=== PATIENT | male | born 1960 | race Caucasian/White ===

== ENCOUNTER 2019-04-13 10:17 | Emergency (ER) | payer OTHER ==
[2019-04-13 10:27] VITALS: TEMP 97.9; BMI 23.7
--- NOTE | 2019-04-13 10:59 | PDOC ---
Attending Attestation - Resident Resident Name: Tyler Foss - HPI HPI: 04/13/19 11:44 pt presents to the ED complaining of abdominal distention and decreased urine output. History of BPH. Has urology follow up on Monday. - Physicial Exam PE: 04/13/19 11:50 Agree with resident exam. Patient is alert and oriented and in no acute distress. Abdomen is soft, non tender, non distended without guarding or rebound. - Medical Decision Making 04/13/19 13:11 pt presents to the Ed complaining of urinary retention. Crawford placed in the ED with drainage of 1300 cc urine. Will discharge home with instructions to return to the ED for new or worsening symptoms and to follow up with his urologist on Monday.
[2019-04-13 12:09] LABS: HEMATOCRIT 40.9 % (35.4-49); HEMOGLOBIN 13.8 GM/dL (11.7-16.9); MCH 29.7 pg (25.7-33.7); MCHC 33.7 g/dl (32.0-35.9); MEAN CELL VOLUME 88.3 fl (80-96); MEAN PLT VOLUME 9.7 fl (7.5-11.1); PLATELET COUNT 171 K/MM3 (134-434); RBC 4.63 M/mm3 (4.00-5.60); RDW 14.2 % (11.9-15.9); WHITE BLOOD COUNT 8.3 K/mm3 (4.0-10.0)
--- NOTE | 2019-04-13 12:25 | PDOC ---
History of Present Illness - General Chief Complaint: Urinary Problem Stated Complaint: SENT BY URGENT CARE Time Seen by Provider: 04/13/19 10:56 History Source: Patient Exam Limitations: No Limitations - History of Present Illness Initial Comments: 58 yo M with a hx of neophrolithiasis, BPH, and elevated PSA (6.4; negative bxx on 09/2018; followed by Dr. Choudhury) presents to the emergency department with urinary incontinence for 6 days. Per the patient, his urinary streams have been weak and described as "dribbling". He states he has had suprapubic pain since then. Denies dysuria and hematuria. Denies the following: fevers, chills, SOB, chest pain, back pain, hematuria, constipation, diarrhea, and hematochezia. Allergies: NKDA Past History - Past Medical History Allergies/Adverse Reactions: Allergies Allergy/AdvReac Type Severity Reaction Status Date / Time codeine AdvReac "SHIVERS Verified 04/13/19 10:27 AND CONSTIPATION" Home Medications: Ambulatory Orders NK [No Known Home Medication] 04/13/19 COPD: No GI Disorders: Yes (enlarged prostate) Kidney Stones: Yes - Psycho Social/Smoking Cessation Hx Smoking History: Current every day smoker Have you smoked in the past 12 months: Yes Number of Cigarettes Smoked Daily: 10 Information on smoking cessation initiated: No 'Breaking Loose' booklet given: 03/26/15 Hx Alcohol Use: No Drug/Substance Use Hx: No Substance Use Type: Marijuana Hx Substance Use Treatment: No Review of Systems - Review of Systems Able to Perform ROS?: Yes Is the patient limited Norwegian proficient: No Constitutional: No: Chills, Diaphoresis, Fever, Weakness HEENTM: No: Eye Pain, Ear Pain, Nose Pain, Throat Pain, Mouth Pain Respiratory: No: Cough, Shortness of Breath, Hemoptysis Cardiac (ROS): No: Chest Pain, Lightheadedness, Palpitations, Chest Tightness ABD/GI: Yes: Abdominal cramping (suprapubic). No: Constipated, Diarrhea, Nausea , Rectal Bleeding, Vomiting, Tarry Stools : Yes: Incontinence. No: Burning, Dysuria, Flank Pain, Hematuria Musculoskeletal: No: Back Pain, Joint Pain, Neck Pain Integumentary: No: Bruising, Erythema, Rash Neurological: No: Headache, Numbness, Seizure, Tingling Psychiatric: No: Change in Appetite Endocrine: No: Unexplained Weight Loss Hematologic/Lymphatic: No: Anemia *Physical Exam - Vital Signs Last Vital Signs Temp Pulse Resp BP Pulse Ox 97.9 F 102 H 16 120/74 98 04/13/19 10:24 04/13/19 10:24 04/13/19 10:24 04/13/19 10:24 04/13/19 10:24 - Physical Exam General Appearance: Yes: Nourished, Appropriately Dressed. No: Apparent Distress, Intoxicated HEENT: positive: EOMI, CINDY, Normal Voice, Symmetrical, Pharynx Normal, Hearing Grossly Normal. negative: Pale Conjunctivae, Scleral Icterus (R), Scleral Icterus (L), Muffled/Hoarse voice, Pharyngeal Erythema, Tonsillar Exudate, Tonsillar Erythema, Nasal Congestion, Rhinorrhea, Sinus Tenderness, Excessive drooling Neck: positive: Trachea midline, Supple. negative: Tender, Lymphadenopathy (R) , Lymphadenopathy (L), Tender lateral, Tender midline Respiratory/Chest: positive: Lungs Clear, Normal Breath Sounds. negative: Chest Tender, Respiratory Distress, Accessory Muscle Use, Decreased Breath Sounds, Paradoxal Breathing, Crackles, Rales, Rhonchi Cardiovascular: positive: Regular Rhythm, Regular Rate, S1, S2. negative: Systolic Murmur Gastrointestinal/Abdominal: positive: Normal Bowel Sounds, Flat, Soft. negative : Tender, Rebound, Tenderness Male Genitalia: positive: normal genitalia. negative: hematuria Lymphatic: negative: Adenopathy Musculoskeletal: positive: Normal Inspection. negative: CVA Tenderness, Vertebral Tenderness Extremity: positive: Normal Capillary Refill, Normal Inspection, Normal Range of Motion. negative: Tender, Swelling, Calf Tenderness Integumentary: positive: Normal Color, Dry, Warm. negative: Swelling, Ecchymosis Neurologic: positive: Fully Oriented, Alert, Normal Mood/Affect ED Treatment Course - LABORATORY CBC & Chemistry Diagram: 04/13/19 11:29 04/13/19 11:29 - ADDITIONAL ORDERS Additional order review: 04/13/19 11:29 RBC 4.63 MCV 88.3 MCHC 33.7 RDW 14.2 MPV 9.7 Medical Decision Making - Medical Decision Making 04/13/19 13:17 58 yo M with a hx of neophrolithiasis, BPH, and elevated PSA (6.4; negative bxx on 09/2018; followed by Dr. Choudhury) presents to the emergency department with urinary incontinence for 6 days. Initial vitals: Initial Vital Signs Temp Pulse Resp BP Pulse Ox 97.9 F 102 H 16 120/74 98 04/13/19 10:24 04/13/19 10:24 04/13/19 10:24 04/13/19 10:24 04/13/19 10:24 Work up: ddx: patient was given a mendoza catheter and was found to have an output of 1200 cc Patient to have cbc, cmp, and ua to elucidate for acute process Laboratory Tests 04/13/19 04/13/19 04/13/19 11:11 11:29 11:29 WBC 8.3 RBC 4.63 Hgb 13.8 Hct 40.9 MCV 88.3 MCH 29.7 MCHC 33.7 RDW 14.2 Plt Count 171 MPV 9.7 Sodium 139 Potassium 4.1 Chloride 108 H Carbon Dioxide 26 Anion Gap 6 L BUN 15.7 Creatinine 0.9 Est GFR (CKD-EPI)AfAm 107.97 Est GFR (CKD-EPI)NonAf 93.16 Random Glucose 120 H Calcium 9.3 Total Bilirubin 0.6 AST 19 ALT 16 Alkaline Phosphatase 54 Total Protein 6.8 Albumin 3.5 Urine Color Yellow Urine Appearance Clear Urine pH 5.5 Ur Specific [place] 1.013 Urine Protein Trace Urine Glucose (UA) Negative Urine Ketones Negative Urine Blood Trace Urine Nitrite Negative Urine Bilirubin Negative Urine Urobilinogen 0.2 Ur Leukocyte Esterase Negative Urine WBC (Auto) 1 Urine RBC (Auto) 9 Urine Casts (Auto) 0 U Epithel Cells (Auto) 0.3 Urine Bacteria (Auto) 10.1 Patient has no DEMETRA and no UTI. Will follow up with Dr. Choudhury within 1 week after discharge. Dispo: Discharge 04/13/19 13:29 Discharge - Discharge Information Problems reviewed: Yes Clinical Impression/Diagnosis: Urinary retention Disposition: HOME - Admission No - Follow up/Referral Referrals: ON STAFF,NOT [Primary Care Provider] - [facility] [place] [facility] [place] [Provider Group] Randolph Choudhury MD., [Staff Physician] - - Patient Discharge Instructions Patient Printed Discharge Instructions: How to Care for Your Mendoza Catheter -- Male, DI for Urinary Retention in Men Additional Instructions: You were seen in the emergency department for your urinary retention. Please follow up with your primary medical doctor and urologist within 3 days after discharge for follow up care and management. Please return to the emergency department if you have worsening symptoms or new concerning symptoms such as urine not flowing. Thank you. - Post Discharge Activity Work/Back to School Note: Back to Work
[2019-04-13 12:27] LABS: EPI CELLS 0.3 /HPF (0-5/HPF); HYALINE CASTS 0 /lpf (0-8); PH,URINE 5.5 (5.0-8.0); URINE APPEARANCE CLEAR; URINE BACTERIA 10.1 /hpf (NEGATIVE); URINE BILIRUBIN NEGATIVE (NEGATIVE); URINE COLOR YELLOW; URINE GLUCOSE (UA) NEGATIVE (NEGATIVE); URINE KETONE NEGATIVE (NEGATIVE); URINE LEUK ESTERASE NEGATIVE (NEGATIVE); URINE NITRITE NEGATIVE (NEGATIVE); URINE PROTEIN TRACE (NEGATIVE); URINE RBC 9 /hpf (0-4); URINE UROBILINOGEN 0.2 mg/dL (0.2-1.0); URINE WBC 1 /hpf (0-5)
[2019-04-13 12:37] LABS: ALBUMIN 3.5 g/dl (3.4-5.0); BILIRUBIN,TOTAL 0.6 mg/dL (0.2-1); BLOOD UREA NITROGEN 15.7 mg/dL (7-18); CALCIUM 9.3 mg/dL (8.5-10.1); CREATININE 0.9 mg/dL (0.55-1.3); POTASSIUM 4.1 mmol/L (3.5-5.1); TOT PROT 6.8 g/dl (6.4-8.2)
[2019-04-13 14:13] VITALS: BP 126/60; PULSE 66
== END 2019-04-13 14:13 | disposition home or self-care (01) ==
LOC: JER 10:17
PROC: 0T9B70Z Drainage of Bladder with Drainage Device, Via Natural or Artificial Opening (ICD-10-PCS; principal; 2019-04-13)
DX: N40.1 Benign prostatic hyperplasia with lower urinary tract symptoms (principal); R33.8 Other retention of urine; R39.12 Poor urinary stream; R97.20 Elevated prostate specific antigen [PSA]; Z87.442 Personal history of urinary calculi; Z88.5 Allergy status to narcotic agent
CPT/HCPCS: 36415; 51702; 80053; 81003; 85027; 99283-25

== ENCOUNTER 2022-05-17 03:57 | Day surgery (SDC) | payer OTHER ==
[2022-05-12 14:00] VITALS: BMI 23.1
[2022-05-17] MEDS ORDERED: MIDAZOLAM HCL 2 MG/2 ML SINGLE DOSE VIAL ONE (10:05)
[2022-05-17] MEDS ORDERED: ceFAZolin SODIUM 1 GM VIAL IVPB ONE (10:25)
[2022-05-17] MEDS ORDERED: ELECTROLYTE-148 SOLN 1,000 ML IV SCH (11:45)
[2022-05-17 13:23] VITALS: RESP 18
[2022-05-17 14:07] VITALS: BP 109/61; PULSE 80; TEMP 97.8
== END 2022-05-17 13:50 | disposition home or self-care (01) ==
LOC: JASU-SURG 03:57
PROVIDERS: ATTEND Urology
PROC: 0VT08ZZ Resection of Prostate, Via Natural or Artificial Opening Endoscopic (ICD-10-PCS; principal; 2022-05-17 10:00)
DX: N40.1 Benign prostatic hyperplasia with lower urinary tract symptoms (principal); R33.8 Other retention of urine
CPT/HCPCS: 86850; 86900; 86901; 88305-TC; 94760

== ENCOUNTER 2023-04-04 04:04 | Day surgery (SDC) | payer OTHER ==
[2023-03-29 14:12] VITALS: BMI 23.7
[2023-04-04] MEDS ORDERED: PROPOFOL 40 ML ONE (10:41)
[2023-04-04] MEDS ORDERED: MIDAZOLAM HCL 2 MG/2 ML SINGLE DOSE VIAL ONE (10:42)
[2023-04-04] MEDS ORDERED: SUCCINYLCHOLINE CHLORIDE 200 MG/10 ML SYRINGE ONE (10:42)
[2023-04-04] MEDS ORDERED: ceFAZolin SODIUM 1 GM VIAL ONE (10:53)
[2023-04-04] MEDS ORDERED: ONDANSETRON 4 MG/2 ML VIAL ONE (10:53)
[2023-04-04] MEDS ORDERED: DEXAMETHASONE SOD PHOSPHATE 4 MG/1 ML VIAL ONE (10:53)
[2023-04-04] MEDS ORDERED: ceFAZolin SODIUM 1 GM VIAL IVPB ONE (10:54)
[2023-04-04] MEDS ORDERED: oxyCODONE HCL 5 MG TABLET PO PRN (12:46)
[2023-04-04] MEDS ORDERED: ONDANSETRON 4 MG/2 ML VIAL IVPUSH PRN (12:46)
[2023-04-04] MEDS ORDERED: LACTATED RINGERS SOLUTION 1,000 ML IV SCH (13:00)
[2023-04-04] MEDS ORDERED: ELECTROLYTE-148 SOLN 1,000 ML IV SCH (13:00)
[2023-04-04 14:30] VITALS: RESP 16; TEMP 97.8
[2023-04-04 14:38] VITALS: BP 134/72; PULSE 78
== END 2023-04-04 14:32 | disposition home or self-care (01) ==
LOC: JASU-SURG 04:04
PROVIDERS: ATTEND Urology
PROC: 0TCB8ZZ Extirpation of Matter from Bladder, Via Natural or Artificial Opening Endoscopic (ICD-10-PCS; 2023-04-04)
PROC: 0VT08ZZ Resection of Prostate, Via Natural or Artificial Opening Endoscopic (ICD-10-PCS; principal; 2023-04-04 11:15)
DX: N40.1 Benign prostatic hyperplasia with lower urinary tract symptoms (principal); R33.8 Other retention of urine; N21.0 Calculus in bladder
CPT/HCPCS: 88307-TC; 94760